=== PATIENT | male | born 1970 | race Caucasian/White ===

== ENCOUNTER → 2017-10-02 10:49 | Outpatient (CLI) | payer OTHER, SELFPAY | PROVIDERS: PCP Emergency Medicine; Visit Provider Emergency Medicine | DX: N20.0 Calculus of kidney (principal) | CPT/HCPCS: 87086 ==

== ENCOUNTER 2019-07-04 02:32 | Outpatient (CLI) | payer OTHER, SELFPAY ==
[2019-07-04 10:06] LABS: ESR 18 mm/hr (1-20)
[2019-07-04 10:33] LABS: C-Reactive Protein 0.58 mg/dL (0.0-0.3)
== END 2019-07-04 02:52 ==
PROVIDERS: PCP Emergency Medicine; Visit Provider Family Medicine
DX: M25.50 Pain in unspecified joint (principal)
CPT/HCPCS: 36415; 85652; 86140

== ENCOUNTER → 2019-07-26 11:01 | Outpatient (CLI) | payer OTHER, SELFPAY ==
--- NOTE | 2019-07-26 09:45 | DI.RAD_ITS ---
EXAM: XR SHOULDER RT COMPLETE 2+V CLINICAL HISTORY: pain right shoulder. TECHNIQUE: 2D digital imaging was performed. COMPARISON: No exams were available for comparison FINDINGS: BONES: No acute fracture is present. No bony destructive lesion is seen. Normal mineralization. JOINTS: Hypertrophic changes are seen at the acromioclavicular joint. The glenohumeral joint is well maintained. SOFT TISSUE: Normal. IMPRESSION: Degenerative changes of the right AC joint. DATA REPOSITORY: RADIATION DOSE DELIVERED:
== END ==
PROVIDERS: PCP Family Medicine; Referring Provider Family Medicine; Visit Provider Student in an Organized Health Care Education/Training Program
DX: M25.511 Pain in right shoulder (principal); M19.011 Primary osteoarthritis, right shoulder
CPT/HCPCS: 73030

== ENCOUNTER → 2019-10-27 03:02 | Outpatient (CLI) | payer OTHER, SELFPAY ==
[2019-10-27 16:05] LABS: ESR 20 mm/hr (1-20)
[2019-10-27 22:22] LABS: CRP, High Sensitivity 4.73 mg/L (See Note); Rheumatoid Factor <8.6 IU/mL (<12.0)
[2019-10-28 08:35] LABS: Cyclic Citrullinated Peptide <2.5 U/mL (<5.0)
[2019-10-28 10:47] LABS: Lyme Ab w Rflx to Lyme Confirm Equivocal (Negative)
[2019-10-28 15:03] LABS: ANA Interpretation Positive (Negative); ANA Titer Pattern 1:320 Homogeneous
[2019-11-01 14:59] LABS: IgG Immunoblot Negative (Negative); IgM Immunoblot Negative (Negative)
== END ==
PROVIDERS: Visit Provider Student in an Organized Health Care Education/Training Program
DX: M25.50 Pain in unspecified joint (principal)
CPT/HCPCS: 36415; 85652; 86141; 86200; 86617; 86038; 86431; 86618

== ENCOUNTER → 2019-11-03 01:20 | Outpatient (CLI) | payer OTHER, SELFPAY ==
--- NOTE | 2019-11-03 09:15 | DI.MRI_ITS ---
EXAM: MR UPPER JOINT LT WO CLINICAL HISTORY: L SHOULDER PAIN,IMPINGEMENT SYNDROME,TENDINITIS SHOULDER,BURSITIS. TECHNIQUE: Multiplanar multisequence MRI was performed. COMPARISON: No exams were available for comparison FINDINGS: MR examination of the shoulder was performed according to the usual protocol. Bones and glenoid labrum: There are prominent hypertrophic changes of acromioclavicular joint. The a cromion impinges the superior aspect the supraspinatus myotendinous junction region. There is thinning of the articular cartilage of the humerus and glenoid at the glenohumeral joint. T here is subchondral cyst formation of the greater tuberosity of the humerus presumably on degenerativ e basis. No gross labral tear identified but there is thinning of the labrum. Biceps tendon and anchor: There is small quantity of fluid in the bicipital tendon sheath. Biceps te ndon is normally positioned in the bicipital groove. There is abnormal signal of the biceps anchor a nd proximal biceps without evidence of a discrete tear. Findings are consistent with tendinosis. Rotator cuff: The rotator cuff muscles appear fairly well preserved and are not fatty replaced. Ther e is superior impingement of the acromion on the myotendinous junction region of the supraspinatus. There is an associated effusion of subacromial subdeltoid bursa. There is abnormal signal in the sup raspinatus tendon and in the myotendinous junction region anteriorly. There is an apparent attachmen t tear measuring up to about 4 millimeters in width at the inferior surface of the supraspinatus hamzah chment. There is also abnormal signal in subscapularis attachment, question partial thickness tear o f subscapularis. No tendon retraction seen. Infraspinatus tendon shows essentially normal signal and there is no evidence of infraspinatus tendon tear. IMPRESSION: Findings consistent with proximal bicipital tendinosis. No tear identified. Normally position bicep s tendon. Degenerative changes of glenohumeral and acromioclavicular joint, impingement on superior myotendinou s junction region of supraspinatus. Supraspinatus partial-thickness inferior surface tear at the humeral attachment, probable small poorl y defined region of fraying/tear of the subscapularis attachment as well. No full-thickness or retra cted rotator cuff tendon tear. DATA REPOSITORY:
== END ==
PROVIDERS: Visit Provider Student in an Organized Health Care Education/Training Program
DX: M19.012 Primary osteoarthritis, left shoulder (principal); M75.42 Impingement syndrome of left shoulder; M75.102 Unspecified rotator cuff tear or rupture of left shoulder, not specified as traumatic
CPT/HCPCS: 73221

== ENCOUNTER → 2019-11-30 15:57 | Outpatient (CLI) | payer OTHER, SELFPAY ==
--- NOTE | 2019-11-30 15:00 | DI.RAD_ITS ---
EXAM: XR SHOULDER LT COMPLETE 2+V CLINICAL HISTORY: left shoulder pain. TECHNIQUE: 2D digital imaging was performed. COMPARISON: CR XR SHOULDER RT COMPLETE 2+V from 07/26/2019 FINDINGS: BONES: No acute fracture is present. No bony destructive lesion is seen. JOINTS: No dislocation present. Degenerative changes are seen at the acromioclavicular joint. The gl enohumeral joint is well maintained. SOFT TISSUE: Normal. IMPRESSION: Degenerative changes of the left AC joint. DATA REPOSITORY: RADIATION DOSE DELIVERED:
== END ==
PROVIDERS: Visit Provider Student in an Organized Health Care Education/Training Program
DX: M19.012 Primary osteoarthritis, left shoulder (principal)
CPT/HCPCS: 73030

== ENCOUNTER 2020-01-17 08:24 | Outpatient (CLI) | payer OTHER, SELFPAY ==
[2020-01-17 12:49] LABS: ALT 59 U/L (16-63); AST 31 U/L (15-37); Albumin 3.9 g/dL (3.4-5.0); Alkaline Phosphatase 85 U/L (46-116); Anion Gap 3.7 mmol/L (3-11); BUN 11 mg/dL (7-18); Bilirubin, Total 0.3 mg/dL (0.2-1.0); CO2 28.3 mmol/L (21.0-32.0); CREATININE 1.09 mg/dL (0.70-1.30); Calculated LDL 140 mg/dL (<100); Chloride 108 mmol/L (98-107); Cholesterol 215 mg/dL (<200); Glucose 105 mg/dL (74-106); HDL Cholesterol 48 mg/dL (40-60); Potassium 4.4 mmol/L (3.5-5.1); Sodium 140 mmol/L (136-145); Total Protein 6.8 g/dL (6.4-8.2); Triglyceride 136 mg/dL (<150)
== END 2020-01-17 08:44 ==
DX: Z00.00 Encounter for general adult medical examination without abnormal findings (principal); Z13.220 Encounter for screening for lipoid disorders
CPT/HCPCS: 36415; 80053; 80061

== ENCOUNTER → 2020-03-02 04:42 | Outpatient (CLI) | payer OTHER, SELFPAY ==
--- NOTE | 2020-03-02 08:15 | DI.MRI_ITS ---
EXAM: MR UPPER JOINT RT WO CLINICAL HISTORY: Continued pain,TENDINITIS,IMPINGEMENT SYNDROME,M75.51,M75.41,M75.21 TECHNIQUE: Multiplanar multisequence MRI of the shoulder was performed. COMPARISON: CR XR SHOULDER LT COMPLETE 2+V from 11/30/2019 FINDINGS: MARROW:There is no evidence of fracture, Hill-Sachs deformity, nor ominous osseous lesions. ROTATOR CUFF MECHANISM: AC JOINT/ACROMIUM: There moderate degenerative changes at the AC joint level. There is some impingem ent.. There is no evidence of os acromiale. Supraspinatus: There is a full-thickness tear of the supraspinatus tendon with read some retraction o f the musculotendinous junction to the mid humeral head level. Mild supraspinatus atrophy. Infraspinatus: Intact. No evidence of tear nor muscle atrophy. Teres Minor: Intact. No evidence of tear nor muscle atrophy. Subscapularis/anterior cuff: Intact. No abnormal signal at the level of the multipennate insertional fibers. No significant tear nor atrophy. BICEPS TENDON: Normally positioned within the intertubercular groove. Partial tearing of the intra-a rticular aspect There is some fluid in the synovial sheath LABRUM: There is tearing of the superior labrum posterior to the biceps insertion site. Posterior la doreen is intact. Intrasubstance signal in the anterior labrum consistent with some tearing. Inferior labrum is intact. There is no evidence of paralabral cyst. GLENOHUMERAL JOINT: There is a moderate-large joint effusion. This extends into the medial recess an d into the subacromial space. Minimal degenerative changes. No osteophytes. No evidence of capsula r tear. The inferior glenohumeral ligament is intact. CAPSULE: No capsular tears evident. The inferior glenohumeral ligament is intact. IMPRESSION: 1. There is a full-thickness tear of the rotator cuff supraspinatus tendon with retraction musculoten dinous junction and mild muscle atrophy. Moderate degenerative changes in the AC joint. 2. Other 3 muscles of the rotator cuff mechanism are intact. 3. There is tearing of the intrasubstance biceps and there is also superior labral tear. Also some t earing of the anterior labrum. No evidence of paralabral cyst. Moderate-large glenohumeral joint effusion. No loose intra-articular body. Effusion extends into th e medial recess and down the long head biceps tendon sheath and is continuous into the subacromial bu rsa region via the full-thickness tear in the supraspinatus. DATA REPOSITORY:
== END ==
PROVIDERS: Visit Provider Student in an Organized Health Care Education/Training Program
DX: M75.121 Complete rotator cuff tear or rupture of right shoulder, not specified as traumatic (principal); M19.011 Primary osteoarthritis, right shoulder; S46.221A Laceration of muscle, fascia and tendon of other parts of biceps, right arm, initial encounter; M25.411 Effusion, right shoulder
CPT/HCPCS: 73221

== ENCOUNTER 2020-08-08 01:52 | Outpatient (CLI) | payer OTHER, SELFPAY ==
[2020-08-08 09:05] LABS: Source Nasal/Nares
[2020-08-08 17:23] LABS: COVID-19 PCR Negative (Negative)
== END 2020-08-08 01:53 | disposition home or self-care (01) ==
LOC: LBO 01:52
PROVIDERS: Visit Provider Surgery
DX: Z20.822 Contact with and (suspected) exposure to COVID-19 (principal); Z01.818 Encounter for other preprocedural examination
CPT/HCPCS: 87635

== ENCOUNTER 2020-08-10 12:15 | Day surgery (SDC) | payer OTHER, SELFPAY ==
[2020-08-10 12:22] VITALS: BP 137/96; PULSE 101; RESP 18; TEMP 36.3; O2SAT 99
--- NOTE | 2020-08-10 12:51 | W.ANESPRE ---
General Info Date of Service Date Performed: 08/10/20 Height: 5 ft 6 in Weight: 98.5 kg Body Mass Index (BMI): 35.0 Surgical Procedure: Operation Date: 08/10/20 12:05 Proposed Procedures Side Surgeon christa Arteaga, Meds Allergies and Home Medications Allergies Allergy/AdvReac Type Severity Reaction Status Date / Time prednisone Allergy Severe body Verified 08/10/20 12:38 swelling,rash,itching Home Medication Medication Instructions Recorded ibuprofen 800 mg tablet 800 mg PO BID #60 tab 01/17/20 bisacodyl 5 mg tablet,delayed 5 mg PO ONCE #4 tab 07/19/20 release polyethylene glycol 3350 17 238 g PO ONCE #238 g 07/19/20 gram/dose oral powder Current Visit Medications: Current Medications Generic Name Dose Route Start Last Admin Trade Name Freq PRN Reason Stop Dose Admin Ringer's Solution 1,000 mls @ 80 mls/hr 08/10/20 06:00 IV 09/08/20 23:59 INFUSION TI IV Miscellaneous Supplies 1 each 08/10/20 06:00 Iv Access IV 09/08/20 23:59 DIRECTED TI Sodium Chloride 0 ml 08/10/20 06:00 Normal Saline Flush 10 Ml Syr IV 09/08/20 23:59 PRN PRN Sodium Chloride 0 ml 08/10/20 06:00 Normal Saline 10 Ml Vial IJ 09/08/20 23:59 DIRECTED PRN Sterile Water 0 ml 08/10/20 06:00 Water,Injection,Sterile 10 Ml Vial IJ 09/08/20 23:59 DIRECTED PRN PFSH Active Problems Active Problems: Problem Status Onset Code Elevated blood pressure reading R03.0 Encounter for administration of vaccine Z23 Status post rotator cuff surgery Z98.890 Increased body mass index (BMI) R63.8 Encounter for annual physical exam Z00.00 Colon cancer screening Z12.11 Low back pain M54.5 Polyarthralgia M25.50 Tendinitis of long head of biceps brachii of both shoulders M75.21, M75.22 Impingement syndrome of both shoulders M75.41, M75.42 Bilateral shoulder bursitis M75.51, M75.52 Non-alcoholic fatty liver disease 06/22/12 K76.0 Obstructive sleep apnea syndrome G47.33 Fatigue R53.83 Bilateral foot pain M79.671, M79.672 Neck pain M54.2 Medical History Medical History Colon cancer screening Elevated blood pressure reading Encounter for administration of vaccine Encounter for annual physical exam Hyperlipidemia Increased body mass index (BMI) Kidney stones (05/08/15) Surgical History Surgical History Status post rotator cuff surgery right - [facility] [place]- 03/14/20 Tonsillectomy Tobacco Smoking/Tobacco Use Status: Former Tobacco Use Passive smoking exposure: Yes Alcohol Alcohol Intake: current Alcohol intake frequency: a few times a month Substance Use Substance use: Never Substance use type: does not use Vital Signs and Lab Results Vital Signs Most Recent Vital Signs in EMR: Most Recent Vital Signs Temp Pulse Resp BP Pulse Ox 36.3 C L 101 H 18 137/96 H 99 08/10/20 12:22 08/10/20 12:22 08/10/20 12:22 08/10/20 12:22 08/10/20 12:22 Lab Results Blood Type / Crossmatch: No Data to Display Complete Blood Count: No Data to Display Complete Metabolic Panel: No Data to Display Liver Function Panel: No Data to Display Coagulation Panel: No Data to Display Cardiac Panel: No Data to Display Arterial Blood Gas: No Data to Display Venous Blood Gas: No Data to Display Pancreas Panel: No Data to Display Thyroid Panel: No Data to Display Infectious Disease: Coronavirus (COVID-19)(PCR) Negative (Negative) 08/08/20 08:32 08/08/20 Coronavirus 2019 Source Nasal/Nares 08/08/20 08:32 08/08/20 Blood Cultures: No Data to Display Toxicology Panel: No Data to Display Anesthesia Assessment and Plan Anesthesia History Personal History: No History of Anesthesia Complications Family History: No Family History of Anesthesia Complications Exercise Tolerance Exercise Tolerance: Metabolic Equivalents>4 Pertinent Negatives Pertinent Negatives: No Symptoms of GERD Cardiac & Pulmonary Exam Cardiac Exam: Normal S1/S2 Heart Sounds Pulmonary Exam: Clear Bilateral Breath Sounds Airway Exam Known Difficult Airway: No Mallampati Class: 1 Mouth Opening: Normal (> 3cm) Thyromental Distance: Greater than 3 cm Neck Range of Motion: Full ROM Neck Circumference: Normal Teeth Condition: Normal Dentition ASA Classification ASA Score: ASA 2 Emergency Case?: No NPO Status NPO Status: NPO Clears >2 hours, Solids >8 hours Anesthesia Plan Resuscitation Status: Full Code Anesthesia Technique: General Anesthesia Airway Planned: Natural Airway Monitors Used: Standard Monitors
[2020-08-10] MEDS: Lactated Ringers 1,000 ML 80 ML IV (12:52)
[2020-08-10 12:54] VITALS: BMI 35.0
--- NOTE | 2020-08-10 13:10 | BOWEL_PTH ---
PATIENT: Kieran Gonzalez LOC: [facility] U#:[id number] AGE/SX: 50/M ROOM: RE08/10/[address]: Kym Arteaga : 1970 BED: DIS: 08/10/2020 SPEC #: [id number] RECD: 08/10/20 15:43 STATUS: MANPREET REQ #: [id number] DANIELA: 08/10/20 13:[address]: Kym Arteaga DEPT: Surgical Specimen RECD BY: Regi Lombardo ENTERED: 08/10/20 15:43 SP TYPE: Bowel OTHR DR: Kelsey Lenz APRN Tissues: 1 - BIOPSY BOWEL Procedures: GROSS AND MICRO LEVEL 4 Comments:
[2020-08-10 13:22] VITALS: BP 98/65; PULSE 74; RESP 16; TEMP 36.4; O2SAT 95
--- NOTE | 2020-08-10 13:23 | COLE_ITS ---
Date of service: 08/10/20 Time of Service: 13:23 Colonoscopy Report Date of procedure: 08/10/20 Pre-op diagnosis general: screen Post-op diagnosis procedure note: other (minute polyp and few divertic) Procedure: Colon polypectomy at 80 cm Surgeon: Kym Arteaga Anesthesia Type: General:No Airway Pathology: other Complications: None Disposition: same day Prep: Miralax/Dulcolax Retraction Time: 9 Procedure Description: After informed consent was obtained the patient was taken to the procedure room and placed in a left decubitous position. Monitors were applied and a time out was done. The patients name, date of , procedure, allergies to medications and metal in their body was reviewed. The patient was then sedated. Once sedated and comfortable a rectal exam was done. External exam was normal. Internal exam revealed a normal sphincter tone and no palpable masses. The scope was then introduced and retrofelexed. no internal hemorrhoids were identified. The scope was then advanced to the cecum w/out difficulty. The TI and appendiceal orifice were identified. The prep was good. The scope was then slowly retracted over 9 minutes back into the rectum. In a very minute flat, 2- 3 mm polyp, that is removed with cold biopsy forcep and one bite. This is an 80 cm. All specimen is retrieved and no bleeding is noted. He had a few small scattered diverticuli in the sigmoid colon. There are very few. There is no signs of bleeding or infection. Otherwise the mucosa is pink and healthy. The scope was removed and the patient was woken up and taken back to Same day surger y in stable condition. The patient tolerated the procedure well and there were no immediate complications. Follow up: The patient should follow up in 5-7 years unless they develop changes in bowel habits or other new gastrointestinal complaints.
--- NOTE | 2020-08-10 13:25 | PDOC.DSDIS_ITS ---
Discharge Plan Disposition Patient Disposition: HOME Condition: Good Discharge Details Reason For Visit: colon scope Attending Provider: Kym Arteaga Primary Care Provider: Kelsey Lenz Home Meds and New Rx's Prescriptions: Continued ibuprofen 800 mg tablet 800 mg PO BID Qty: 60 RF: 1 Discontinued polyethylene glycol 3350 17 gram/dose powder 238 g PO ONCE Qty: 238 RF: 0 bisacodyl [Dulcolax (bisacodyl)] 5 mg tablet,delayed release (DR/EC) 5 mg PO ONCE Qty: 4 RF: 0 Discharge Instructions Additional Instructions: [facility] Colonoscopy Post- Op Instructions Instructions for Everyone who is given Anesthesia: For your safety, please do the following for the next twenty-four (24) hours: *Do Not operate a motor vehicle (car, truck, motorcycle, etc.) *Do Not drink alcoholic beverages or use any recreational drugs for the first 24 hours or while taking pain medications. The medications in your body may have a reaction that can be dangerous. *Do Not make any important decisions or sign any important papers. Findings: Small polyp Minor diverticula of the sigmoid colon Follow up: We will send a letter in 3 to 4 weeks with the results of the polyp pathology and when to repeat the colonoscopy-probably 7 years time. 1. No lifting over 20 pounds or strenuous activity for the first 24 hours after your procedure. After 24 hours there are no restrictions on your activity but you may feel fatigued for a few days. 2. After you arrive home you may have a light meal and return to your normal diet as you can tolerate it without feeling sick to your stomach. 3. You may have a bloated, gaseous feeling in your belly (abdomen) after a colonoscopy. Passing gas and belching will help. Walking or lying down on your left side with your knees flexed may relieve the discomfort. Call the office at [phone] (Office) or [phone] (Hospital) right away if you notice any of the following: a.Vomiting of blood or ?coffee ground stools?. b.Rectal bleeding 1Tbsp, blood clots or continuous bleeding. c.Severe belly (abdominal) pain. d.A hard distended belly (abdomen) and an inability to pass gas. 4. Please don?t expect to have a normal BM (bowel movement) for 2-3 days after your procedure. 5. If there are questions regarding the findings of your procedure, please contact your doctor 6. If you are unable to contact your doctor with a problem, contact the hospital at [phone]. 7. Continue all your regular medications unless directed otherwise. I understand the above instructions and have no questions. Signature of Patient or Adult Escort Name of Responsible Adult Escort Signature of Nurse Date/Time Activity:: see above Diet:: see above Discharge Orders Discharge Orders: Discharge Order (Routine); Ordered 08/09/20 Ordered By: Kym Arteaga DS: Diagnosis Discharge Diagnosis (1) Diverticula of colon: Status: Acute
--- NOTE | 2020-08-10 13:32 | W.ANESPOSTOP ---
Postoperative Evaluation Date, Time and Location Date Performed: 08/10/20 Time Performed: 13:32 Patient Location: Day Surgery Unit Vital Signs Most Recent Imported Vital Signs: Most Recent Vital Signs Temp Pulse Resp BP Pulse Ox 36.4 C L 74 16 98/65 L 95 08/10/20 13:22 08/10/20 13:22 08/10/20 13:22 08/10/20 13:22 08/10/20 13:22 Pain Score Most Recent Pain Score: Most Recent Pain Score Pain Level 0 08/10/20 13:22 Assessment Mental Status: Awake (Alert & Oriented to Patient Baseline) Airway and Respiratory Function: Patent airway with normal (patient baseline) respiratory exam Cardiovascular Function: Hemodynamically Stable Hydration Status: Adequately Hydrated Nausea & Vomiting: No Nausea or Vomiting Pain: Pt. Denies Any Pain Peripheral Nerve Block: Patient did not receive a nerve block
[2020-08-10 13:52] VITALS: BP 124/89; PULSE 72; RESP 16; TEMP 36.4; O2SAT 96
== END 2020-08-10 14:10 | disposition home or self-care (01) ==
PROVIDERS: Visit Provider Surgery
PROC: 0DJD8ZZ Inspection of Lower Intestinal Tract, Via Natural or Artificial Opening Endoscopic (ICD-10-PCS; CPT 45378; principal; 2020-08-10 12:00)
DX: Z12.11 Encounter for screening for malignant neoplasm of colon (principal); D12.4 Benign neoplasm of descending colon
CPT/HCPCS: 45380; 88305

== ENCOUNTER 2021-01-22 18:54 | Outpatient (REF) | payer OTHER, SELFPAY ==
[2021-01-24 14:05] LABS: COVID-19 RT-PCR UVMMC Result Negative (Negative)
== END 2021-01-22 18:55 | disposition home or self-care (01) ==
LOC: LBN 18:54
DX: Z20.822 Contact with and (suspected) exposure to COVID-19 (principal)
CPT/HCPCS: U0003

== ENCOUNTER 2021-10-03 19:48 | Emergency (ER) | payer BC, SELFPAY ==
[2021-10-03 19:52] VITALS: BP 153/91; PULSE 81; RESP 20; TEMP 36.9; O2SAT 98
[2021-10-03 19:56] VITALS: RESP 22
--- NOTE | 2021-10-03 20:00 | DI.RAD_ITS ---
Exam(s) XR PORTABLE CHEST AP EXAM: XR PORTABLE CHEST AP CLINICAL HISTORY: sob, cough, r/o pneumnia TECHNIQUE: 2D digital imaging was performed. COMPARISON: CR CHEST 2 VIEWS PA,LAT from 09/28/2009 FINDINGS: LUNGS: Clear. No pleural abnormality seen. HEART: Normal. AORTA: Normal. BONES: Unremarkable for age. Soft tissues: Unremarkable. IMPRESSION: No acute findings. DATA REPOSITORY: RADIATION DOSE DELIVERED:
--- NOTE | 2021-10-03 20:00 | RT.EKG_ITS ---
APPROVED REPORT Exam: Resting ECG Reason for Exam: sob Patient Location: E HR:73 bpm ECG Measurements Heart Rate 73 AXIS AZ 152 P 56 QRSd 93 QRS -37 QT 359 T 35 QTc 397 Conclusion Sinus rhythm...normal P axis, V-rate 60- 99 Left axis deviation...QRS axis (-30,-90) PHysican: Sinus rhythm, rate 73, no significant ST elevation or depression. Inverted T wave present in V1. No evidence of STEMI. Left axis deviation is present.
--- NOTE | 2021-10-03 20:08 | ED.GENADUL_ITS ---
Discharge Plan Disposition Patient Disposition: HOME Condition: Good Discharge Details Clinical Impression: Community acquired pneumonia Primary Care Provider: Kelsey Lenz ED Provider: Bipin Kolb Home Meds and New Rx's Prescriptions: New doxycycline hyclate 100 mg tablet 100 mg PO BID Qty: 20 0RF No Action ibuprofen 800 mg tablet 800 mg PO BID PRN (Reason: fever or pain) Qty: 60 1RF Discharge Instructions Instructions: Community Acquired Pneumonia (ED) Additional Instructions: At this time you have evidence of community-acquired pneumonia. Please take the antibiotic doxycycline as directed. The prescription has been sent to your pharmacy on file. Please use the inhaler, 2 puffs every 6 hours to help co ntinue breathing well. Take the cough medication only as needed. You can take Benadryl or an antihistamine to help with the cough and runny nose. If you notice any worsening of your symptoms, or any new symptoms such as vomiting, diarrhea, fever, chills, shortness of breath, chest pain, numbness, weakness, or fainting , please return immediately to the emergency department for reevaluation. Please follow up with your primary care provider as soon as possible for reassessment and reevaluation. As always, it was a pleasure participating in your medical care today. Referrals: Kelsey Lenz, [employer] [Primary Care Provider] - Medical Decision Making 51-year-old male with a past medical history of high cholesterol, previous kidney stones, distant tobacco use abuse over a decade ago, who presents today for cough, fever, chills, shortness of breath. Patient states that over the last 4 days he has developed the symptoms gradually with a gradual worsening. His cough is productive of yellow sputum. He states that his symptoms are worse when he lies back, and feels like he cannot breathe when he lies back. He denies any hemoptysis. He denies any numbness or tingling. He does admit to a small amount of chest heaviness, that seems to be worse with breathing, coughing, and moving. He denies any personal history of cardiac problems. No family history of cardiac disease. He denies any tearing or ripping sensation in his chest. He did take 2 home COVID test a few days ago and these were negative. No other complaints at this time. No long trips surgeries or procedures. No history of blood clots. Physical exam demonstrates crackles in the lungs, worse on the left than the right. No pitting edema. Symptoms do not appear overly consistent with fluid overload, no more concerning for pneumonia however CHF is on the differential. Pneumonia is highest. Cardiac etiology unlikely as his symptoms appear more musculoskeletal in nature however due to his age and risk factors we will evaluate for this as well. We will give a breathing treatment, start antibiotics(ceftriaxone and azithromycin) for suspected clinical pneumonia, get a chest x-ray, monitor closely and reassess. 10:33 PM Patient's laboratory work-up has returned, no white count, minimally elevated lactate at 1.5. Electrolytes stable, troponin normal, proBNP normal. EKG normal. Flu COVID and RSV negative. Patient has persistent cough here. Chest x-ray is read as negative per radiology, but I do think that there is a small amount of infiltrate noted on the left with a mild amount of haziness. Bedside ultrasound demonstrates B-lines at the left base, and evidence of occasional air bronchograms. I do feel the patient is suffering from mild early bronchitis with early pneumonia. Patient did not tolerate the azithromycin well. He got nauseous, and felt slightly diaphoretic. No rash or signs of reaction otherwise though. We will give doxycycline for home instead. Vital signs otherwise stable. No evidence of hypoxemia or severe tachycardia. Patient stable for discharge with close follow-up. I have extensively reviewed the treatment plan and discharge instructions with the patient and their family. I have addressed all patient concerns at this time. The patient and family was made aware of what symptoms to monitor for that would warrant a return to the emergency department. Discussed the plan with the patient and family, they demonstrate verbal understanding and agreement with our assessment and plan at this time. The documentation in this chart was dictated using Qraved dictation software. Please excuse any dictation errors. EKG 20: 10 Sinus rhythm, rate 73, no significant ST elevation or depression. Inverted T wave present in V1. No evidence of STEMI. Left axis deviation is present. FINDINGS: Lungs: Lungs are adequately inflated and symmetric. No focal consolidation or pulmonary edema. Pleural spaces: No visible pleural effusion. No pneumothorax. Heart/Mediastinum: Cardiomediastinal contours within normal limits. Bones/joints: No acute osseous finding. IMPRESSION: No acute cardiopulmonary finding. Thank you for allowing us to participate in the care of your patient. Dictated and Authenticated by: Obi Goldberg MD 10/03/2021 9:29 PM Eastern Time ([place] & [place]) HPI General Date/Time Provider Initiated Documentation: 10/03/21 19:50 . HPI Narrative: 51-year-old male with a past medical history of high cholesterol, previous kidney stones, distant tobacco use abuse over a decade ago, who presents today for cough, fever, chills, shortness of breath. Patient states that over the last 4 days he has developed the symptoms gradually with a gradual worsening. His cough is productive of yellow sputum. He states that his symptoms are worse when he lies back, and feels like he cannot breathe when he lies back. He denies any hemoptysis. He denies any numbness or tingling. He does admit to a small amount of chest heaviness, that seems to be worse with breathing, coughing, and moving. He denies any personal history of cardiac problems. No family history of cardiac disease. He denies any tearing or ripping sensation in his chest. He did take 2 home COVID test a few days ago and these were negative. No other complaints at this time. No long trips surgeries or procedures. No history of blood clots. Related Data Home Medications Medication Instructions Recorded Confirmed ibuprofen 800 mg tablet 800 mg PO BID PRN fever or pain 01/18/21 10/03/21 #60 tabs doxycycline hyclate 100 mg tablet 100 mg PO BID #20 tabs 10/03/21 Previous Rx's Medication Instructions Recorded ibuprofen 800 mg tablet 800 mg PO BID PRN fever or pain 01/18/21 #60 tabs doxycycline hyclate 100 mg tablet 100 mg PO BID #20 tabs 10/03/21 Allergies Allergy/AdvReac Type Severity Reaction Status Date / Time prednisone Allergy Severe body Verified 01/22/21 14:16 swelling,rash,itching azithromycin AdvReac Intermediate Dizziness/L Unverified 10/03/21 22:28 ighthead General Stated Complaint: SOB NUBIA: 3 Review of Systems All systems reviewed & are unremarkable except as noted in HPI and below PFSH All Active Problems (Updated 10/03/21 @ 22:03 by Bipin Kolb DO) Community acquired pneumonia (Acute) Diverticula of colon (Acute) sigmoid Elevated blood pressure reading (Acute) Encounter for administration of vaccine (Acute) Status post rotator cuff surgery (Acute) right - [facility] [place]- 03/14/20 Increased body mass index (BMI) (Acute) Encounter for annual physical exam (Acute) Colon cancer screening (Acute) Low back pain (Acute) Polyarthralgia (Acute) Tendinitis of long head of biceps brachii of both shoulders (Acute) Impingement syndrome of both shoulders (Acute) Bilateral shoulder bursitis (Acute) Non-alcoholic fatty liver disease (Acute 06/22/12) Obstructive sleep apnea syndrome (Acute) Fatigue (Acute) Bilateral foot pain (Acute) Neck pain (Acute) Medical History Hyperlipidemia Kidney stones (05/08/15) Tubular adenoma (~08/10/20) Surgical History History of colonoscopy (~08/10/20) Tonsillectomy Family History Mother Diabetes Hyperlipidemia Father Diabetes Hyperlipidemia Sister No problems noted. Brother No problems noted. Brother No problems noted. Brother No problems noted. Son No problems noted. Social History Smoking/Tobacco Use Status: Former Tobacco Use tobacco type: cigarettes Quit Date: 02/16/11 Smoking risk assessment performed?: Yes Alcohol Intake: current Alcohol Intake frequency: a few times a month Drug use: Never Substance use type: does not use Caregiver/Support person: No Household members: significant other, children and foster family Housing: house Do you need help understanding health information?: Never Pets and animals: Yes Pets and animals: cat(s) Do you think of yourself as: straight/heterosexual Current gender identity: male What is your relationship status?: living with partner How often do you talk on the phone with friends or family?: three or more times per week How often do you get together with friends or relatives?: once per week How often do you attend orthodox or voodoo services?: decline to answer Do you belong to any clubs or organized social groups?: no Panel score (0-1 are the most socially isolated patients): 2 What type of physical activity do you participate in: other Details: Hunting and Fishing Seatbelt use: always Drive intox or ride w/intox lyft driver: No Do you feel safe at home: Yes Do you feel safe in your relationship?: Yes Victim of physical abuse: No Victim of emotional abuse: No Victim of sexual abuse: No Would you like helpful sources: No Exam Narrative Exam Narrative: 1.Const: Well-nourished, Well-developed, appearing stated age 2.Eyes: PERRL, no conjunctival injection, and symmetrical lids. 3.ENT: Atraumatic external nose and ears. Dry MM. Neck: Symmetric, trachea midline, No thyromegaly. 4.CVS: +S1/S2, No murmurs or gallops. Peripheral pulses 2+ and equal in all extremities. Brisk capillary refill in all extremities. 5.RESP: Crackles in the bases he has a right lower lobe and worse from the left lower lobe. No significant wheeze or rhonchi. Minimal chest achiness on palpation. 6.GI: Soft, Nontender/Nondistended, No hepatosplenomegaly. No guarding or rebound. 7.MSK: Normocephalic/Atraumatic, Extremities w/o deformity or ttp No cyanosis or clubbing, Normal movement of all extremities, no calf tenderness. No pitting edema of the lower extremities. 8.Skin: Warm, Dry. No rashes or lesions. 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 Sensation grossly intact, no focal neurologic deficits. 10.Psych: (AAO) x3. Appropriate mood and affect Course Vital Signs Vital signs: Vital Signs Temperature 36.9 C 10/03/21 19:52 Pulse 81 10/03/21 19:52 Respiratory Rate 20 10/03/21 19:52 Blood Pressure 153/91 H 10/03/21 19:52 Pulse Oximetry 98 10/03/21 19:52 Temperature 36.9 C 10/03/21 19:52 Temperature Source Oral 10/03/21 19:52 Pulse 81 10/03/21 19:52 Respiratory Rate 22 10/03/21 19:56 Respiratory Effort 10/03/21 19:56 Respiratory Depth Normal 10/03/21 19:56 Respiratory Pattern Normal 10/03/21 19:56 Blood Pressure 153/91 H 10/03/21 19:52 Blood Pressure Position Supine 10/03/21 19:52 Pulse Oximetry 98 10/03/21 19:52 Oxygen Delivery Method Room Air 10/03/21 19:52 Oxygen Flow Rate 0 10/03/21 19:52 Pain Level 5 10/03/21 19:52 Comment 10/03/21 19:52
[2021-10-03 20:25] LABS: Abs Immature Grans 0.02 10^3/uL (0.0-0.06); Absolute Basophil Count 0.06 10^3/uL (0.0-0.2); Absolute Eosinophil Count 0.31 10^3/uL (0.0-0.7); Absolute Lymphocyte Count 3.43 10^3/uL (1.2-3.4); Absolute Monocyte Count 1.45 10^3/uL (0.1-0.8); Basophils % 0.6; Eosinophils % 3.3; HGB 14.2 g/dL (13.5-17.5); Immature Grans % 0.2; Lactate 1.5 mmol/L (0.6-1.4); Lymphocytes % 36.2; MCH 30.9 pg (27.0-33.0); MCHC 33.8 % (32.0-36.0); MCV 91 fL (80-95); MPV 10.9 fL (8.0-11.0); Monocytes % 15.3; Neutrophils % 44.4; Platelet Count 160 10^3/uL (130-400); RDW 13.4 % (11.8-14.1); RDW-SD 45.6 fL; WBC 9.47 10^3/uL (4.4-10.8)
[2021-10-03] MEDS: cefTRIAXone 2 GM/50 ML BAG IVPB (20:29)
[2021-10-03 20:49] LABS: ALT 87 U/L (16-63); AST 52 U/L (15-37); Albumin 3.9 g/dL (3.4-5.0); Alkaline Phosphatase 95 U/L (46-116); Anion Gap 7.8 mmol/L (3-11); BUN 10 mg/dL (7-18); Bilirubin, Total 0.5 mg/dL (0.2-1.0); CO2 30.2 mmol/L (21.0-32.0); CREATININE 1.1 mg/dL (0.70-1.30); Calcium 9.7 mg/dL (8.5-10.1); Chloride 102 mmol/L (98-107); Glucose 114 mg/dL (74-106); NT-proBNP 35 pg/mL (<300); Potassium 3.7 mmol/L (3.5-5.1); Sodium 140 mmol/L (136-145); Total Protein 7.8 g/dL (6.4-8.2); Troponin I < 50 ng/L (<or=60)
[2021-10-03] MEDS: Albuterol/Ipratropium 3 ML UPD VIAL 6 ML UPD (20:55)
[2021-10-03] MEDS: AZITHROMYCIN 500 MG in Normal Saline 250 ML 250 MG IVPB (21:06)
[2021-10-03 21:14] LABS: COVID-19 PCR Negative (Negative); Influenza A PCR Negative (Negative); Influenza B PCR Negative (Negative); RSV PCR Negative (Negative)
[2021-10-03 21:27] LABS: Source Nasopharynx
[2021-10-03] MEDS: Normal Saline 1,000 ML 1000 ML IV (21:27)
--- NOTE | 2021-10-03 21:30 | DI.VRAD_ITS ---
PROCEDURE INFORMATION: Exam: XR Chest Exam date and time: 10/03/2021 8:37 PM Age: 51 years old Clinical indication: Cough and shortness of breath; Additional info: SOB, cough TECHNIQUE: Imaging protocol: Radiologic exam of the chest. Views: 1 view. COMPARISON: MR UPPER JOINT RT WO 03/02/2020 2:03 PM FINDINGS: Lungs: Lungs are adequately inflated and symmetric. No focal consolidation or pulmonary edema. Pleural spaces: No visible pleural effusion. No pneumothorax. Heart/Mediastinum: Cardiomediastinal contours within normal limits. Bones/joints: No acute osseous finding. IMPRESSION: No acute cardiopulmonary finding. Dictated and Authenticated by: Obi Goldberg MD. Ordering:MARY GRACE Voss MD
[2021-10-03 21:36] VITALS: BP 126/95; PULSE 92; RESP 21; O2SAT 97
[2021-10-03] MEDS: Albuterol HFA 8 GM 60 PUFF INH IH (22:12)
[2021-10-03] MEDS: Benzonatate 100 MG CAP 400 MG PO (22:13)
[2021-10-03] MEDS: Doxycycline Hyclate 100 MG, 2 CAPS/BTL PO (22:14)
--- NOTE | 2021-10-03 22:24 | NUR.NOTE ---
Pt had episode of diaphoresis, abd discomfort, nausea, dizziness, lightheadedness about 20 minutes after azithromycin IV infusion was started. Abx stopped, MD notified. Abx discontinued. New verbal order for 1L NS bolus by MD. Pt states feeling much better after bolus.
== END 2021-10-03 22:23 | disposition home or self-care (01) ==
PROVIDERS: Emergency Provider Student in an Organized Health Care Education/Training Program
DX: J18.9 Pneumonia, unspecified organism (principal); R74.02 Elevation of levels of lactic acid dehydrogenase [LDH]; R61 Generalized hyperhidrosis; Z87.891 Personal history of nicotine dependence; Z20.822 Contact with and (suspected) exposure to COVID-19
CPT/HCPCS: 80053; 87637; 93005; 93308; 96361; 96365; 96367; 99284; 71045; 83605; 83735; 83880; 84484; 85025; 93010; 99285; J0456; J7620

== ENCOUNTER 2023-04-07 18:32 | Outpatient (REF) | payer BC, SELFPAY ==
[2023-04-07 20:43] LABS: HCT 43.7 % (40.0-50.0); HGB 14.5 g/dL (13.5-17.5); MCH 29.7 pg (27.0-33.0); MCHC 33.2 % (32.0-36.0); MCV 89 fL (80-95); Platelet Count 169 10^3/uL (130-400); RBC 4.89 10^6/uL (4.36-5.78); RDW 13.6 % (11.8-14.1); RDW-SD 44.9 fL; WBC 9.18 10^3/uL (4.4-10.8)
[2023-04-07 21:01] LABS: ALT 47 U/L (16-63); AST 31 U/L (15-37); Albumin 4.4 g/dL (3.4-5.0); Alkaline Phosphatase 92 U/L (46-116); Anion Gap 9.5 mmol/L (3-11); BUN 13 mg/dL (7-18); Bilirubin, Total 0.3 mg/dL (0.2-1.0); CO2 29.5 mmol/L (21.0-32.0); CREATININE 1.2 mg/dL (0.70-1.30); Calculated LDL 154 mg/dL (<100); Chloride 102 mmol/L (98-107); Cholesterol 238 mg/dL (<200); Estimated GFR 71.86 (mL/min/1.73m2); Glucose 89 mg/dL (74-106); HDL Cholesterol 51 mg/dL (40-60); Potassium 3.9 mmol/L (3.5-5.1); Sodium 141 mmol/L (136-145); TSH (W/Ref FT4) 2.45 uIU/mL (0.36-3.74); Total Protein 7.9 g/dL (6.4-8.2); Triglyceride 169 mg/dL (<150)
[2023-04-07 21:07] LABS: Hemoglobin A1C 5.9 % (<5.7)
[2023-04-08 20:14] LABS: Hepatitis C Ab w Rflx HCV PCR Negative (Negative)
[2023-04-08 21:58] LABS: HIV-1/2 Ag & Ab Screen Negative (Negative)
== END 2023-04-07 18:33 | disposition home or self-care (01) ==
LOC: LBN 18:32
PROVIDERS: PCP Nurse Practitioner Family; Visit Provider Nurse Practitioner Family
DX: R68.89 Other general symptoms and signs (principal); R73.9 Hyperglycemia, unspecified; Z11.4 Encounter for screening for human immunodeficiency virus [HIV]; Z11.59 Encounter for screening for other viral diseases; R53.83 Other fatigue; R79.89 Other specified abnormal findings of blood chemistry
CPT/HCPCS: 80053; 80061; 85027; 86803; 87389; 83036; 84443

== ENCOUNTER 2024-05-17 22:00 | Outpatient (REF) | payer BC, SELFPAY ==
[2024-05-17 22:53] LABS: Hemoglobin A1C 5.9 % (<5.7)
[2024-05-17 22:54] LABS: TSH (W/Ref FT4) 2.25 uIU/mL (0.36-3.74)
== END 2024-05-17 22:01 | disposition home or self-care (01) ==
LOC: LBN 22:00
PROVIDERS: PCP Nurse Practitioner Family; Visit Provider Nurse Practitioner Family
DX: R73.03 Prediabetes (principal); R53.82 Chronic fatigue, unspecified
CPT/HCPCS: 83036; 84443

== ENCOUNTER 2024-05-20 06:53 | Emergency (ER) | payer BC, SELFPAY ==
[2024-05-20 06:57] VITALS: BP 149/115; PULSE 66; RESP 20; TEMP 36.1; O2SAT 98
[2024-05-20 07:00] VITALS: BP 149/115; PULSE 66; RESP 20; TEMP 36.1; O2SAT 98
[2024-05-20 07:22] LABS: Abs Immature Grans 0.03 10^3/uL (0.0-0.06); Absolute Basophil Count 0.09 10^3/uL (0.0-0.2); Absolute Eosinophil Count 0.13 10^3/uL (0.0-0.7); Absolute Monocyte Count 0.71 10^3/uL (0.1-0.8); Absolute Neutrophil Count 5.42 10^3/uL (1.2-6.7); Eosinophils % 1.4 %; HCT 45.2 % (40.0-50.0); HGB 14.7 g/dL (13.5-17.5); Immature Grans % 0.3 %; Lymphocytes % 31.3 %; MCH 30.1 pg (27.0-33.0); MCHC 32.5 % (32.0-36.0); MCV 93 fL (80-95); MPV 10.9 fL (8.0-11.0); Monocytes % 7.7 %; Neutrophils % 58.3 %; Platelet Count 128 10^3/uL (130-400); RBC 4.88 10^6/uL (4.36-5.78); RDW 13.2 % (11.8-14.1); RDW-SD 45.6 fL; WBC 9.28 10^3/uL (4.4-10.8)
[2024-05-20] MEDS: HYDROmorphone 2 MG/ML SYR 1 MG IVP (07:27)
[2024-05-20 07:39] LABS: ALT 64 U/L (16-63); AST 33 U/L (15-37); Alkaline Phosphatase 99 U/L (46-116); BUN 13 mg/dL (7-18); Bilirubin, Total 0.3 mg/dL (0.2-1.0); CREATININE 1.4 mg/dL (0.70-1.30); Calcium 9.2 mg/dL (8.5-10.1); Chloride 104 mmol/L (98-107); Estimated GFR 58.99 (mL/min/1.73m2); Glucose 147 mg/dL (74-106); Lipase 29 U/L (<78); Magnesium 1.9 mg/dL; Sodium 142 mmol/L (136-145); Total Protein 7.4 g/dL (6.4-8.2)
--- NOTE | 2024-05-20 08:15 | DI.CT_ITS ---
Exam(s) CT RENAL COLIC WO EXAM: CT RENAL COLIC WO z CLINICAL HISTORY: right sided pain raditing to scrotum, h/o renal st. TECHNIQUE: Imaging Protocol: Axial computed tomography images with coronal and sagittal reformatted images were created and reviewed CONTRAST MATERIAL: Intravenous: none Oral: None COMPARISON: No exams were available for comparison FINDINGS: VISUALIZED LUNG BASES: No nodules nor pleural effusions evident. ABDOMEN: There is no ascites. LIVER: There are no obvious focal hepatic lesions evident of this noninfused study. GALLBLADDER/BILIARY: No obvious gallbladder pathology. CBD is not dilated. PANCREAS: No evidence of pancreatic mass nor dilatation of the pancreatic duct. SPLEEN: Spleen is not enlarged. No obvious intrasplenic lesions. ADRENALS: There are no significant adrenal masses. KIDNEYS:Bilateral nephrolithiasis. Small calculi seen in both kidneys. However, on the right side t here is an obstructing 3 millimeter calculus in the lower right ureter at the UVJ level with mild dil atation the right collecting system above this level as well as unilateral right-sided perinephric st randing. Urinary bladder appears unremarkable. ABDOMINAL AORTA: Abdominal aorta is not enlarged. LYMPH NODES: There is no retroperitoneal nor paraaortic adenopathy. ABDOMINAL WALL: Bilateral fat only containing inguinal hernias. GI: There is no evidence of bowel obstruction, free air, nor abscess. PELVIS: LYMPH NODES: There is no intrapelvic nor inguinal adenopathy. GI: No evidence of appendicitis.No evidence of sigmoid diverticulitis. URINARY BLADDER: No calculi nor obvious masses evident REPRODUCTIVE: Prostate size normal. Seminal vesicles unremarkable OSSEOUS: No significant osseous lesions. No fractures moderate disc space narrowing at L4-5 level. No listhesis. IMPRESSION: 1. There is an obstructing small 3 mm calculus in the lower right ureter at ureterovesical junction. There is mild-moderate hydronephrosis and hydroureter above this level. 2. Bilateral nephrolithiasis also noted. Report called by myself to ER physician 05/20/2024 at 8:50 a.m. RADIATION DOSE DELIVERED: 856.17mGy.cm Total DLP DATA REPOSITORY: All CT scans at this facility are submitted to the National Radiology Data Registry (NRDR) Dose Index Registry (DIR) with the [employer] (ACR). RADIATION OPTIMIZATION: All CT scans at this facility use at least one of these dose optimization te chniques: automated exposure control; mA and/or kV adjustment per patient size (includes targeted exa ms where dose is matched to clinical indication); or iterative reconstruction.
[2024-05-20] MEDS: Tamsulosin 0.4 MG CAPCR PO (08:57)
--- NOTE | 2024-05-20 09:02 | W.ED.GENAD ---
Discharge Plan Disposition Patient Disposition: Home Condition: Stable Discharge Details Clinical Impression: Ureterolithiasis, Thrombocytopenia, Bilateral kidney stones Primary Care Provider: Felipe Otoole ED Provider: Vin Alvarez Home Meds and New Rx's Prescriptions: New tamsulosin [Flomax] 0.4 mg capsule 0.4 mg PO DAILY Qty: 14 0RF Continued azelastine 205.5 mcg (0.15 %) spray,non-aerosol 205.5 mcg intranasal DAILY Qty: 30 0RF Rx Instructions: administer into each nostril ibuprofen 800 mg tablet 800 mg PO BID PRN (Reason: fever or pain) Qty: 60 1RF fluticasone propionate [Flonase Allergy Relief] 50 mcg/actuation spray,suspension 1 spray intranasal BID Qty: 16 12RF Rx Instructions: administer into each nostril Discharge Instructions Instructions: Kidney Stone, Adult ED Additional Instructions: CT imaging today revealed kidney stones and a 3 mm stone in your right ureter. You have been started on Flomax. Continue this medication over the next 2 weeks. Please follow-up with urology. Strain your urine to collect stone. Incidentally noted on your blood test was slightly low platelet level. Your creatinine was slightly elevated. Please be sure to discuss this with your primary care physician. Follow-up outpatient diagnostic testing may be necessary. Please follow-up with your primary care physician. Return to the emergency department immediately for any worsening or new concerning symptoms. Referrals: [facility] [Provider Group] Felipe Otoole, UTILITY AIDE [Primary Care Provider] - Discharge Data Discharge Date/Time-TO BE ENTERED AT DEPARTURE: 05/20/24 09:28 HPI General Mode of arrival: ambulatory. Date/Time Provider Initiated Documentation: 05/20/24 07:12. Limitations to Documentation: no limitations. Information obtained by: patient. HPI Narrative: HISTORY OF PRESENT ILLNESS The patient presents with right lower abdominal pain. He reports intermittent pain in the right groin area, radiating to the right lower abdomen, fluctuating in intensity over the past week, escalating to severe today. Accompanying symptoms include nausea and dry heaving, but no diarrhea, abnormal penile discharge, dysuria, or fever. Despite high water intake last night, he did not drink much this morning. No testicular swelling. No history of abdominal surgeries or significant chronic conditions. Recent consultation on Thursday revealed no abnormalities, though he had mild pain at that time. Related Data Home Medications ?Medication ?Instructions ?Recorded ?Confirmed azelastine 205.5 mcg (0.15 %) 205.5 mcg (0.137 mL) intranasal 02/25/22 05/20/24 nasal spray DAILY #30 mL ibuprofen 800 mg tablet 800 mg PO BID PRN fever or pain 02/25/22 05/20/24 #60 tabs fluticasone propionate 50 1 spray intranasal BID #16 grams 04/07/23 05/20/24 mcg/actuation nasal spray,suspension (Flonase Allergy Relief) tamsulosin 0.4 mg capsule (Flomax) 0.4 mg PO DAILY #14 caps 05/20/24 Previous Rx's ?Medication ?Instructions ?Recorded azelastine 205.5 mcg (0.15 %) 205.5 mcg (0.137 mL) intranasal 02/25/22 nasal spray DAILY #30 mL ibuprofen 800 mg tablet 800 mg PO BID PRN fever or pain 02/25/22 #60 tabs fluticasone propionate 50 1 spray intranasal BID #16 grams 04/07/23 mcg/actuation nasal spray,suspension (Flonase Allergy Relief) tamsulosin 0.4 mg capsule (Flomax) 0.4 mg PO DAILY #14 caps 05/20/24 Allergies Allergy/AdvReac Type Severity Reaction Status Date / Time prednisone Allergy Severe body Verified 05/20/24 07:00 swelling,rash,itching azithromycin AdvReac Intermediate Dizziness/L Unverified 05/20/24 07:00 ighthead General Stated Complaint: Abd Prob NUBIA: 3 Review of Systems All systems reviewed & are unremarkable except as noted in HPI and below Exam Narrative Exam Narrative: PHYSICAL EXAM General Appearance: Normal. Vital signs: Within normal limits. HEENT: Dry lips and tongue. Respiratory: Lungs clear bilaterally. Cardiovascular: Heart sounds normal with regular rate and rhythm. Gastrointestinal: Diminished bowel sounds. Tenderness in right lower abdomen. No hernia. Genitourinary: Normal scrotum and testicles. Skin: Warm and dry, no rash. Neurological: Normal. Course Vital Signs Vital signs: Vital Signs Temperature 36.1 C L 05/20/24 06:57 Pulse 66 05/20/24 06:57 Respiratory Rate 20 05/20/24 06:57 Blood Pressure 149/115 H 05/20/24 06:57 Pulse Oximetry 98 05/20/24 06:57 Temperature 36.1 C L 05/20/24 07:00 Temperature Source Temporal Artery Scan 05/20/24 07:00 Pulse 66 05/20/24 07:00 Respiratory Rate 20 05/20/24 07:00 Blood Pressure 149/115 H 05/20/24 07:00 Blood Pressure Position Supine 05/20/24 07:00 Pulse Oximetry 98 05/20/24 07:00 Oxygen Delivery Method Room Air 05/20/24 07:00 Oxygen Flow Rate 0 05/20/24 07:00 Pain Level 10 05/20/24 07:00 Lab/Test Results Lab/Test Results: Laboratory Tests Range/Units 05/20/24 05/20/24 07:12 07:12 WBC (4.4-10.8) 10^3/uL 9.28 RBC (4.36-5.78) 10^6/uL 4.88 Hgb (13.5-17.5) g/dL 14.7 Hct (40.0-50.0) % 45.2 MCV (80-95) fL 93 MCH (27.0-33.0) pg 30.1 MCHC (32.0-36.0) % 32.5 RDW (11.8-14.1) % 13.2 Plt Count (130-400) 10^3/uL 128 L MPV (8.0-11.0) fL 10.9 Immature Gran % % 0.3 Neutrophils % % 58.3 Lymphocytes % % 31.3 Monocytes % % 7.7 Eosinophils % % 1.4 Basophils % % 1.0 Nucleated RBC % (0.0-0.3) % 0.0 Absolute Neutrophils (1.2-6.7) 10^3/uL 5.42 Absolute Lymphocytes (1.2-3.4) 10^3/uL 2.90 Absolute Monocytes (0.1-0.8) 10^3/uL 0.71 Absolute Eosinophils (0.0-0.7) 10^3/uL 0.13 Absolute Basophils (0.0-0.2) 10^3/uL 0.09 Sodium (136-145) mmol/L 142 Potassium (3.5-5.1) mmol/L 4.0 Chloride (98-107) mmol/L 104 Carbon Dioxide (21.0-32.0) mmol/L 30.0 Anion Gap (3-11) mmol/L 8.0 BUN (7-18) mg/dL 13 Creatinine (0.70-1.30) mg/dL 1.4 H Est GFR (CKD-EPI 2020) (mL/min/1.73m2) 58.99 Glucose (74-106) mg/dL 147 H Calcium (8.5-10.1) mg/dL 9.2 Magnesium mg/dL 1.9 Total Bilirubin (0.2-1.0) mg/dL 0.3 AST (15-37) U/L 33 ALT (16-63) U/L 64 H Alkaline Phosphatase (46-116) U/L 99 Total Protein (6.4-8.2) g/dL 7.4 Albumin (3.4-5.0) g/dL 4.0 Lipase Cancelled 29 Medical Decision Making ASSESSMENT AND PLAN Initial Assessment: Patient presents with severe intermittent pain in the right lower abdomen and groin area, nausea, and dry heaving. No fever, diarrhea, or abnormal discharge. Physical examination reveals tenderness in the right lower abdomen and diminished bowel sounds. Patient appears dehydrated. Differential Diagnosis: - Appendicitis: Considered due to location and severity of pain. Plan to rule out with diagnostic imaging. - Kidney Stone: Suspected due to history and location of pain. Plan to confirm with CT scan. ED Course: - Administered IV Dilaudid for pain relief. - Provided IV fluids (LR) for dehydration. - Ordered CT scan of abdomen and pelvis. - CT scan read by radiology: Obstructing 3 mm calculus in lower right ureter at UVJ with mild to moderate hydronephrosis and hydroureter. Bilateral nephrolithiasis noted. - Reviewed labs: Mild thrombocytopenia (platelet count 128) and elevated creatinine (1.4). - Administered Toradol 30 mg IV for discomfort. - Initiated treatment with Flomax to encourage stone movement. - Provided strainer for urine collection. Final Assessment: Diagnostic workup consistent with ureterolithiasis and colic. Treatment initiated with pain management and medication to facilitate stone passage. Clinical Impression: - Ureterolithiasis - Bilateral nephrolithiasis Disposition: - Discharge with outpatient urology follow-up. Patient Education: Instructed to strain urine to collect stone and advised on potential dizziness due to pain medication. MDM Components Evaluation: - Number of Differential Diagnoses or Management Options: Appendicitis, Kidney Stone - Amount and Complexity of Data Reviewed: CT scan, lab results - Risk of Complication and Morbidity or Mortality: Moderate due to potential for obstructive uropathy and infection. This document was written with the assistance of ELIUD Grider. The patient consented to its use. Quality:SDOH Health Related Social Needs: No Data to Display PFSH All Active Problems Bilateral kidney stones (Acute) Thrombocytopenia (Chronic) Ureterolithiasis (Acute) Prediabetes (Acute) Chronic nasal congestion (Acute) Chronic sinusitis (Acute) Diverticula of colon (Acute) sigmoid Elevated blood pressure reading (Acute) Status post rotator cuff surgery (Acute) right - [facility] [place]- 03/14/20 Increased body mass index (BMI) (Acute) Encounter for annual physical exam (Acute) Low back pain (Acute) Polyarthralgia (Acute) Non-alcoholic fatty liver disease (Acute 06/22/12) Obstructive sleep apnea syndrome (Acute) Fatigue (Acute) Medical History Tubular adenoma (~08/10/20) Encounter for administration of vaccine Colon cancer screening Hyperlipidemia Kidney stones (05/08/15) Tendinitis of long head of biceps brachii of both shoulders Impingement syndrome of both shoulders Bilateral shoulder bursitis Bilateral foot pain Neck pain Surgical History History of colonoscopy (~08/10/20) Tonsillectomy Family History Mother Diabetes Hyperlipidemia Father Diabetes Hyperlipidemia Sister No problems noted. Brother No problems noted. Brother No problems noted. Brother No problems noted. Son No problems noted. Social History Smoking/Tobacco Use Status: Former Tobacco Use tobacco type: cigarettes Quit Date: 02/16/11 Smoking risk assessment performed?: Yes Alcohol Intake: current Alcohol Intake frequency: holidays/special occasions only Alcohol type: beer Drug use: Never Substance use type: does not use Adopted: No Caregiver/Support person: No Housing: house Communication Needs: None Education Level: high school Pets and animals: Yes Pets and animals: cat(s) Sexually active: Yes Do you think of yourself as: straight/heterosexual Current gender identity: male What is your relationship status?: How often do you talk on the phone with friends or family?: three or more times per week How often do you get together with friends or relatives?: twice per week How often do you attend worship or episcopal services?: decline to answer Do you belong to any clubs or organized social groups?: no Panel score (0-1 are the most socially isolated patients): 2 What type of physical activity do you participate in: walking Frequency: daily Elizabeth/Shinto: None Special elizabeth needs: No Seatbelt use: always Helmet use: Yes Helmet use: always Drive intox or ride w/intox bung driver: No Firearms in home: Yes Firearms unloaded and locked: Yes Do you feel safe at home: Yes Do you feel safe in your relationship?: Yes Victim of physical abuse: No Victim of emotional abuse: No Victim of sexual abuse: No Would you like helpful sources: No
[2024-05-20] MEDS: Ketorolac 30 MG/ML VIAL IVP (09:16)
[2024-05-20 09:27] VITALS: BP 141/86; PULSE 68; RESP 18; O2SAT 95
== END 2024-05-20 09:28 | disposition home or self-care (01) ==
PROVIDERS: Emergency Provider Student in an Organized Health Care Education/Training Program; PCP Nurse Practitioner Family
DX: N20.0 Calculus of kidney (principal); D69.6 Thrombocytopenia, unspecified; N20.1 Calculus of ureter; R10.31 Right lower quadrant pain; R11.0 Nausea
CPT/HCPCS: 36415; 80053; 83690; 96374; 96375; 99284; 74176; 83735; 85025; J1171; J1885